=== PATIENT | male | born 1955 | race Caucasian/White ===

== ENCOUNTER 2023-02-20 07:51 | Day surgery (SDC) | payer MEDICARE, BC ==
[~2023-02-20 07:51] MED LIST: Lactated Ringers 1,000 ML IV SCH; Sodium Chloride 0.9% 10 ML Syringe FLUSH PRN
[2023-02-20] MEDS ORDERED: Propofol 200 MG/20 ML SDV IV ONE (07:52)
[2023-02-20] MEDS ORDERED: Lidocaine 2% 5 ML SDV IV ONE (07:52)
[2023-02-20] MEDS ORDERED: Simethicone Drops 40 MG/0.6 ML 30 ML Bottle ONE (09:01)
[2023-02-20 10:58] VITALS: BP 127/79; PULSE 78
== END 2023-02-20 10:48 | disposition home or self-care (01) ==
LOC: FB.SDS 07:51
PROVIDERS: ATTEND Surgery
DX: Z12.11 Encounter for screening for malignant neoplasm of colon (principal); D12.2 Benign neoplasm of ascending colon; K57.30 Diverticulosis of large intestine without perforation or abscess without bleeding; K42.0 Umbilical hernia with obstruction, without gangrene; R00.9 Unspecified abnormalities of heart beat; E11.9 Type 2 diabetes mellitus without complications; I10 Essential (primary) hypertension; G47.33 Obstructive sleep apnea (adult) (pediatric); Z86.010 Personal history of colon polyps; Z80.0 Family history of malignant neoplasm of digestive organs; Z79.82 Long term (current) use of aspirin; Z79.899 Other long term (current) drug therapy
CPT/HCPCS: 00811; 45385; 88305; A9270; J2704; J7120